=== PATIENT | female | born 1965 | race Caucasian/White ===

== ENCOUNTER → 2020-10-27 | Outpatient (CLI) | payer MEDICARE ==
[~2020-10-27] MED LIST: CATHETER FLUSH 10 ML SYR IV PRN; HOLD METFORMIN - RECEIVED CONTRAST 20 ML VIAL IV SCH; IOHEXOL 350 MG/ML 100 ML (OMNIPAQUE 350) VIAL IV ONE; NS 100 ML (IVPB) BAG IV ONE; RT-ALBUTEROL SULF 2.5 MG/3 ML PRE-MIX VIAL INH ONE
--- NOTE | 2020-10-27 16:12 | Diagnostic Imaging Report ---
EXAMINATION: CT chest with intravenous contrast. TECHNIQUE: Multiple contiguous axial images were obtained through the chest after the uneventful administration of intravenous contrast. All CT scans use one or more of the following dose optimizing techniques: automated exposure control, MA and/or KvP adjustment based on patient size and exam type or iterative reconstruction. HISTORY: COPD COMPARISON: None available. FINDINGS: There is no edema or pneumonia. No pleural effusion. No pneumothorax. No suspicious nodules. There is no axillary or supraclavicular lymphadenopathy. There is no mediastinal lymphadenopathy. There is severe stenosis of the left subclavian artery origin. Proximal left vertebral artery does not fill with contrast. Heart size is normal. There are mild coronary artery calcifications. No pericardial effusion. Aorta is normal in caliber. Limited views of the upper abdomen are unremarkable. There are no suspicious osseous lesions. IMPRESSION: 1. Clear lungs. 2. Severe narrowing of the left subclavian artery origin with no opacification of the proximal left vertebral artery. Correlate for any evidence of upper extremity ischemia or subclavian steal. Dictated by: Dictated on workstation # [id number]
== END ==
LOC: RT 13:00
PROVIDERS: ATTEND Nurse Practitioner Family
DX: J44.9 Chronic obstructive pulmonary disease, unspecified (principal)
CPT/HCPCS: 71260; 94060; 94726; 94729

== ENCOUNTER → 2020-12-01 | Outpatient (CLI) | payer MEDICARE | LOC: CARD 08:55 | PROVIDERS: ATTEND Internal Medicine Cardiovascular Disease | DX: I10 Essential (primary) hypertension (principal); I25.10 Atherosclerotic heart disease of native coronary artery without angina pectoris | CPT/HCPCS: 93306 ==

== ENCOUNTER → 2021-01-28 | Outpatient (CLI) | payer MEDICARE ==
[~2021-01-28] MED LIST changes: -HOLD METFORMIN - RECEIVED CONTRAST 20 ML VIAL IV SCH; -IOHEXOL 350 MG/ML 100 ML (OMNIPAQUE 350) VIAL IV ONE; -NS 100 ML (IVPB) BAG IV ONE; +REGADENOSON 0.4 MG/5 ML SYR (LEXISCAN) IV ONE; -RT-ALBUTEROL SULF 2.5 MG/3 ML PRE-MIX VIAL INH ONE
[2021-01-28 09:33] VITALS: BP 167/97
--- NOTE | 2021-01-28 12:31 | Cardiology Stress Test Report ---
Stress Test Report Date of Procedure/Referring: Date of Procedure: Jan 28, 2021 PCP Julian Cartwright MD Admitting Physician Center/[facility] Indications: HTN Baseline Heart Rate: 71 Baseline Blood Pressure: Blood Pressure Systolic: 167 Blood Pressure Diastolic: 97 Baseline Vitals Vital Signs Date Time Temp Pulse Resp B/P (MAP) Pulse Ox O2 Delivery O2 Flow Rate FiO2 01/28/21 09:33 69 167/97 (120) Baseline EKG: Baseline EKG: NSR Summary After explaining the procedure to the patient, she signed a consent and then brought to the stress nuclear laboratory. Patient received 0.4 mg Lexiscan for stress test, ECG, heart rate and blood pressure were monitored continuously. Resting and stress dose of radio tracer w ere injected, imaging was acquired and reviewed in short axis, horizontal long axis and vertical long axis views. TID: 1.1 SSS: 9 SDS: 2 EF: 54 1. Patient tolerated Lexiscan well 2. Breast attenuation with typical female pattern, mild decrease uptake at the base of the anterior wall and anterior septum which is fixed, no significant ischemia or infarction was noted 3. Normal left ventricular size, EF 54% JULIAN CARTWRIGHT MD Jan 28, 2021 12:31
== END ==
LOC: CARD 07:07
PROVIDERS: ATTEND Internal Medicine Cardiovascular Disease
DX: I25.10 Atherosclerotic heart disease of native coronary artery without angina pectoris (principal); I10 Essential (primary) hypertension
CPT/HCPCS: 78452; 93017; A9502

== ENCOUNTER 2021-03-11 07:58 | Day surgery (SDC) | payer MEDICARE ==
[~2021-03-11] VITALS: Ht 166 cm; Wt 88.0 kg
--- OUTSIDE RECORDS SUMMARY | 2021-03-11 08:02 | XMS REPORT | Clinical Summary ---
Author Author [facility] Organization [facility] Address Unknown Phone Unavailable Care Team Providers Care Amusement Or Recreation Card Checker Name Role Phone Radha Estes EMI PCP Manny Duenas MD Unavailable Chelsie Elmore EYEGLASS LENS GENERATOR Unavailable Kylee Green APRN-DELIMBER OPERATOR Unavailable Sharmin Campbell EYEGLASS LENS GENERATOR Unavailable Source Comments Some departments are not documenting in the electronic medical record. If you d o not see the information that you expected, contact Release of Information in [facility] Health Information Management department at [phone] for further assistan ce in locating additional records.[facility] Allergies No Known Active Allergies Medications End Date Status Medication Sig Dispensed Refills Start Date Active DOCOSAHEXANOIC ACID/EPA Take 1,000 mg 0 (FISH OIL PO) by mouth daily. Active VITS Take by 0 W-CA,FE,FA(<1MG) mouth daily. ( VITAMIN PO) Active meloxicam (MOBIC) 7.5 mg Take 7.5 mg 0 tablet by mouth daily. Active lisinopril (PRINIVIL, Take 40 mg by 0 ZESTRIL) 40 mg tablet mouth daily. Active ERGOCALCIFEROL (VITAMIN Take 1,000 mg 0 D2) (VITAMIN D PO) by mouth. Active RIBAVIRIN PO Take by 0 mouth. unknown dose takes three in AM two in HS Active SOFOSBUVIR (SOVALDI PO) Take 400 mg 0 by mouth. Active Problems Problem Noted Date Rash 01/06/2014 Vitamin D deficiency 11/05/2013 Hypertension 11/05/2013 Hepatitis C 09/11/2013 Hyperlipidemia 09/11/2013 Tobacco abuse disorder 09/11/2013 Arthritis 09/11/2013 Overview: Formatting of this note might be differ ent from the original. On Meloxicam by PCP Surgical History Surgery Date Site/Laterality Comments HYSTERECTOMY Medical History Medical History Date Comments Hepatitis Social History Date Tobacco Use Types Packs/Day Years Used Current Every Day Smoker 1 Tobacco Cessation: Ready to Quit: Yes; C ounseling Given: Yes Comments: states has tried quitting but isnt ready Comments Alcohol Use Standard Drinks/Week Not Asked 0 (1 standard drink = 0.6 o z pure alcohol) Sex Assigned at Date Recorded Not on file Last Filed Vital Signs Reading Time Taken Comments Vital Sign 158/80 01/30/2015 11:30 AM CDT Blood Pressure 81 01/30/2015 11:30 AM CDT Pulse 37.1 C (98.7 F) 01/30/2015 11:30 AM CDT Temperature 16 01/30/2015 11:30 AM CDT Respiratory Rate 100% 01/30/2015 11:30 AM CDT Oxygen Saturation - - Inhaled Oxygen Concentration 79.5 kg (175 lb 3.2 oz) 01/30/2015 11:30 AM CDT Weight 166.4 cm (5' 5.5") 01/30/2015 11:30 AM CDT Height 28.71 01/30/2015 11:30 AM CDT Body Mass Index Plan of Treatment Health Maintenance Due Date Last Done Comments HIV SCREENING 1978 DTAP/TDAP VACCINES (1 - 1981 Tdap) PHYSICAL (COMPREHENSIVE) 1981 EXAM CERVICAL CANCER SCREENING 1984 BREAST CANCER SCREENING 2003 COLORECTAL CANCER 2013 SCREENING SHINGLES RECOMBINANT 2013 VACCINE (1 of 2) INFLUENZA VACCINE 03/20/2021 HEPATITIS C SCREENING Completed 05/23/2014, 02/14/2014, 09/10/2013, Additional history exists Results Not on filefrom Last 3 Months Insurance Type Payer Benefit Subscriber ID Effective Phone Address Plan / Dates Group HMO [employer] [facility] [id number] 2014-P [place] [id number] Advance Directives 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
[2021-03-11] MEDS ORDERED: LIDOCAINE 1% INJ 20 ML 20 ML VIAL ONE (08:04)
[2021-03-11] MEDS ORDERED: HEParin (CATH LAB) 2,000 ML IV ONE (08:04)
[2021-03-11] MEDS ORDERED: NS IV 1000 ML 1,000 ML ONE (08:04)
[2021-03-11 08:15] VITALS: BP 129/92
[2021-03-11] MEDS ORDERED: NS IV 1000 ML 1,000 ML IV SCH (08:15)
[2021-03-11 08:24] LABS: HEMATOCRIT 42 % (35-52); HEMOGLOBIN 14.6 g/dL (11.5-16.0); MEAN CORPUSCULAR HEMOGLOBIN 33 pg (25-34); MEAN CORPUSCULAR HGB CONC 34 g/dL (32-36); MEAN CORPUSCULAR VOLUME 95 fL (80-99); MEAN PLATELET VOLUME 10.4 fL (9.0-12.2); PLATELET COUNT 192 10^3/uL (130-400); WHITE BLOOD COUNT 8.3 10^3/uL (4.3-11.0)
[2021-03-11 08:42] LABS: PROTHROMBIN TIME PATIENT 13.3 SEC (12.2-14.7)
[2021-03-11 08:52] LABS: BILIRUBIN,TOTAL 0.4 MG/DL (0.1-1.0); CALCIUM 9.3 MG/DL (8.5-10.1); CREATININE SERUM 0.69 MG/DL (0.60-1.30); POTASSIUM 4.2 MMOL/L (3.6-5.0); TOTAL PROTEIN 7.2 GM/DL (6.4-8.2)
[2021-03-11] MEDS ORDERED: TIOT18CA2 IH (08:56)
[2021-03-11] MEDS ORDERED: RT-ALBUINH IH (08:56)
[2021-03-11] MEDS ORDERED: FLUT1DIS26 IH (08:56)
[2021-03-11] MEDS ORDERED: MELO7.5T46 PO (08:56)
--- NOTE | 2021-03-11 09:09 | Diagnostic Imaging Report ---
Portable erect AP chest at 818h. INDICATION: Preop heart catheterization The heart size is within normal limits and stable when compared to the CT chest exam of 10/27/2020. The lungs are clear. There is no sign of failure, pneumonia or a pleural effusion. The mediastinum is not widened. The osseous structures are intact. IMPRESSION: There is no evidence for active disease. Dictated by: Dictated on workstation # [id number]
[2021-03-11] MEDS ORDERED: ASPI-1238 PO (09:17)
[2021-03-11] MEDS ORDERED: MULT-1136 PO (09:17)
[2021-03-11] MEDS ORDERED: fentaNYL INJ 100 MCG/2 ML AMP ONE ×2 (10:23→11:02)
[2021-03-11] MEDS ORDERED: MIDAZOLAM 5 MG/5 ML (VERSED) VIAL ONE ×2 (10:23→11:02)
[2021-03-11] MEDS ORDERED: HEParin 1000 UNIT/ML (10ML VIAL) FOR BOLUS ONE (10:56)
[2021-03-11] MEDS ORDERED: RT-ALBUTEROL SULF 2.5 MG/3 ML PRE-MIX VIAL IH PRN (11:30)
[2021-03-11] MEDS: NS IV 1000 ML 1,000 ML IV SCH ×2 (11:30→21:54)
[2021-03-11] MEDS ORDERED: PATIENT MAY USE OWN MEDS, ALL PO SCH (11:30)
[2021-03-11] MEDS ORDERED: ASPIRIN 325 MG (5 GR) TABLET ONE (11:32)
[2021-03-11] MEDS ORDERED: CLOPIDOGREL 300 MG (PLAVIX) TABLET PO ONE (11:32)
--- NOTE | 2021-03-11 11:33 | Cardiac Cath Report ---
Cardiac Cath Report Physician (s)/Aperture Mask Etcher (s) Physician JULIAN SANTOYO MD Pre-Procedure Diagnosis Pre-Procedure Diagnosis: Coronary artery disease, subclavian artery stenosis Post-Procedure Note Procedure Start Date: Mar 11, 2021 Name of Procedure: Left heart catheterization Aortic arch angiogram Selective left subclavian angiogram Stenting of the left subclavian artery Findings/Procedure Note PROCEDURE NOTE: 55-year-old lady with history of hypertension, hyperlipidemia, has been having left shoulder and arm pain left-sided chest pain, had an abnormal stress test, scheduled for cardiac catheterization, had subclavian steal noted during carotid ultrasound, I was planning to evaluate aortic arch angiogram and possible angioplasty to the subclavian artery if needed. After explaining the procedure to the patient, all pros and cons were explained, all questions were answered. The patient signed the consent and then she was placed on the cardiac catheterization laboratory. Groin was prepped SL fashion local anesthesia was used. Sheath placed in the right femoral artery. Leeann right and left catheter were used to access the coronary system. Pigtail was used to access the left ventricular cavity. Left ventriculogram was not done, pressure was measured Aortic arch angiogram was done. Patient was noted to have severe left subclavian artery stenosis, I advanced the Leeann right catheter in the left subclavian artery, it was dampening of the pressure, angiogram showed severe proximal stenosis. Catheter was left in place and I advanced a Storq wire to the distal subclavian artery, given 5000 units of heparin then the sheath was exchanged into a long 6 Maori sheath. Through the sheath I advanced [place] 35 6 x 20 x 80 balloon did one inflation then reevaluated repeated the inflation then I used Omnilink Elite 7 x 29 x 80 stent deployed under 12 andra to 7.1 cm, angiogram showed excellent results. The sheath was exchanged and used short 7 Maori sheath, ACT was done. At the end of the procedure the sheath was removed. Closure device was deployed FINDINGS: Hemodynamics LV 144/17, end-diastolic pressure of 17 Aorta 148/75 mean of 105 ANATOMY: Left Main is free of obstructive disease Left Anterior Descending has mild disease nonobstructive disease Left Circumflex has mild disease nonobstructive disease Right Coronary Artery has mild disease nonobstructive disease LV Gram was not done, pressure was measured Aorta evaluation done with aortic arch angiogram showing normal aortic arch, no dissection or aneurysm, normal brachiocephalic artery and left carotid artery, the left subclavian artery appeared to have severe stenosis Selective left subclavian angiogram done with the Leeann right diagnostic catheter after reshaping the catheter showing severe long segment stenosis, successful balloon angioplasty then stenting using Omnilink Elite 7 x 29 deployed with excellent results. CONCLUSION: 1. Mild coronary artery disease nonobstructive disease 2. Normal left ventricular end-diastolic pressure 3. Normal aortic arch and brachiocephalic and left carotid with severe stenosis at the left subclavian artery 4. Successful angioplasty and stenting of the left subclavian artery using Omnilink 7 x 29 deployed with excellent results DISCUSSION AND RECOMMENDATION: Patient was started on aspirin and Plavix in addition to Lipitor. Continue to maximize medical therapy Anesthesia Type: Conscious Sedation Estimated blood loss (mL): 30 ml Contrast Amount: 80 ml Total Radiation Dose: 367 mGy Post-Procedure Diagnosis Post-operative diagnosis: Chest pain Coronary artery disease Subclavian steal syndrome Hyperlipidemia JULIAN SANTOYO MD Mar 11, 2021 11:33
--- NOTE | 2021-03-11 11:34 | Conscious Sedation/ASA ---
Conscious Sedation Pre-Proced Time 10:00 ASA Score 3 For ASA 3 and 4: Consider anesthesia and medical clearance. Also, for patients with a history of failed moderate sedation consider anesthesia. Airway Lungs Heart ASA score ASA 1: a normal healthy patient ASA 2: a patient with a mild systemic disease (mid diabetes, controlled hypertension, obesity x ASA 3: a patient with a severe systemic disease that limits activity (angina, COPD, prior Myocardial infarction) ASA 4: a patient with an incapacitating disease that is a constant threat to life (CHF, renal failure) ASA 5: a moribund patient not expected to survive 24 hrs. (ruptured aneurysm) ASA 6: a declared brain- patient whose organs are being harvested. For emergent operations, add the letter E after the classification Mallampati Classification Grade 3 Sedation Plan Analgesia, Amnesia, Plan communicated to team members, Discussed options with patient/fam, Discussed risks with patient/fam The patient is an appropriate candidate to undergo the planned procedure, sedation, and anesthesia. The patient immediately re-assessed prior to indication. JULIAN SANTOYO MD Mar 11, 2021 11:34
[2021-03-11 16:06] VITALS: BP 168/109
[2021-03-11] MEDS: NICOTINE 21 MG (NICODERM) PATCH TD SCH (17:13)
[2021-03-11 20:00] VITALS: BP 160/88
[2021-03-11] MEDS: RT--FLUTICASONE/SALMETEROL 113-14 (AIRDUO RespiCLICK) IH SCH (22:45)
[2021-03-12] VITALS: BP 135/71
[2021-03-12 06:24] LABS: HEMATOCRIT 42 % (35-52); HEMOGLOBIN 14.1 g/dL (11.5-16.0); MEAN CORPUSCULAR HEMOGLOBIN 32 pg (25-34); MEAN CORPUSCULAR HGB CONC 34 g/dL (32-36); MEAN CORPUSCULAR VOLUME 95 fL (80-99); MEAN PLATELET VOLUME 10.7 fL (9.0-12.2); PLATELET COUNT 173 10^3/uL (130-400)
[2021-03-12] MEDS ORDERED: LOSA50TA63 PO (06:24)
[2021-03-12] MEDS ORDERED: PANT40SU PO (06:24)
[2021-03-12] MEDS ORDERED: CLOP75TA28 PO (06:24)
[2021-03-12] MEDS ORDERED: ATOR20TA66 PO (06:24)
--- NOTE | 2021-03-12 06:25 | Discharge Inst-Post CATH ---
Discharge Inst-CATH/EP Problems Reviewed?: Yes Post Cardiac Cath/EP D/C Inst Follow Up/Plan Appointment with Dr Cartwright in 2-4 weeks <b>CARDIAC CATH/EP PROCEDURE DISCHARGE INSTRUCTIONS</b> ACTIVITY * Go Home directly and rest. * Limit activity of the leg (or wrist if it was used) for 7 days including aerobics, swimming, jogging, bicycling, etc. * Restrict stair-climbing for 7 days if possible, if not, climb up with your non-cath leg, then bring together on the same step. * Avoid lifting, pushing, pulling or excessive movement of the affected extremity for 7 days. * Customary sexual activity may be resumed after 2 days-use caution not to use a position that strains or causes pain to the affected extremity. * No driving for 24 hours. * NO SMOKING. * Avoid straining for bowel movements for 7 days. * Gentle walking on level ground is allowed. * Returning to work will depend on the type of procedure and the results. Your doctor will discuss this with you. CALL YOUR DOCTOR FOR ANY OF THE FOLLOWING: *If bleeding from the puncture site occurs- Apply gentle pressure to site with clean cloth and call your doctor or EMS. * If a knot or lump forms under the skin, increases in size, or causes pain. * If bruising appears to be worsening or moving further down your leg instead of disappearing. * Temperature above 101 F. CARE OF YOUR GROIN INCISION; * Bruising or purple discoloration of the skin near the puncture site is common. * You may shower only, no bathtub bathing for 5 days. Be careful to avoid slipping as your leg may feel stiff. * If a closure device was used on your femoral artery, please see the attached guide regarding care of the device and your leg. * Leave dressing on FOR 24 hours. CARE OF YOUR WRIST INCISION; * Bruising or purple discoloration of the skin near the puncture site is common. * You may shower. * DO NOT submerge wrist. * Leave dressing on FOR 24 hours. JULIAN CARTWRIGHT MD Mar 12, 2021 06:25
[2021-03-12 06:38] LABS: POTASSIUM 4.3 MMOL/L (3.6-5.0)
[2021-03-12 06:39] LABS: CALCIUM 9.3 MG/DL (8.5-10.1)
[2021-03-12] MEDS: RT--FLUTICASONE/SALMETEROL 113-14 (AIRDUO RespiCLICK) IH SCH (06:43)
[2021-03-12 06:44] LABS: CREATININE SERUM 0.69 MG/DL (0.60-1.30)
[2021-03-12] MEDS ORDERED: LOSARTAN 50 MG (COZAAR) TAB PO ONE (06:45)
[2021-03-12] MEDS ORDERED: MULTIVIT W/MINERALS TAB (THERAGRAN M) PO SCH (07:00)
[2021-03-12] MEDS: NS IV 1000 ML 1,000 ML IV SCH (07:30)
[2021-03-12] MEDS: NICOTINE 21 MG (NICODERM) PATCH TD SCH (07:36)
[2021-03-12] MEDS ORDERED: UMECLIDINIUM BROMIDE (INCRUSE ELLIPTA) 7'S IH SCH (08:00)
--- NOTE | 2021-03-12 08:32 | Cardiology Progress Note ---
Subjective Date Seen by Provider: Mar 12, 2021 Time Seen by Provider: 08:22 Subjective/Events-last exam Patient was seen at bedside, feeling better. No new complaint. Groin is healing well. Review of Systems General: No Chills, No Night Sweats, No Fatigue, No Malaise, No Appetite, No Other HEENT: No Head Aches, No Visual Changes, No Eye Pain, No Ear Pain, No Dysph andreina, No Sinus Congestion, No Post Nasal Drip, No Sore Throat, No Other Pulmonary: No Dyspnea, No Cough, No Pleuritic Chest Pain, No Other Cardiovascular: No: Chest Pain, Palpitations, Orthopnea, Paroxysmal Noc. Dyspnea, Edema, Lt Headedness, Other Objective-Cardiology Exam Last Set of Vital Signs Vital Signs 03/11/21 03/12/21 03/12/21 16:06 00:00 04:00 Temp 36.0 Pulse 87 Resp 13 B/P (MAP) 135/71 (92) Pulse Ox 96 O2 Delivery Room Air I&O Intake and Output 03/12/21 00:00 Intake Total 800 ml Output Total 2 ml Balance 798 ml Intake Oral 800 ml Output Urine Total 2 ml General: Alert, Oriented X3, Cooperative HEENT: Atraumatic, PERRLA Neck: Supple, No JVD, No Thyromegaly Lungs: Clear to Auscultation, Normal Air Movement Heart: Regular Rate, Normal S1, Normal S2, No Murmurs Abdomen: Normal Bowel Sounds, Soft, No Tenderness, No Hepatosplenomegaly, No Masses Extremities: No Clubbing, No Cyanosis, No Edema, Normal Pulses, No Tendern ess/Swelling Skin: No Rashes, No Breakdown, No Significant Lesion Neuro: Normal Gait, Normal Speech, Strength at 5/5 X4 Ext, Normal Tone, Sensation Intact Psych/Mental Status: Mental Status NL, Mood NL Results Lab Laboratory Tests 03/12/21 05:40 A/P-Cardiology Admission Diagnosis Peripheral arterial disease Hypertension Hyperlipidemia Tobaccoism Assessment/Plan Peripheral arterial disease, severe subclavian stenosis, status post stenting to the left subclavian artery with excellent results 1. Mild coronary artery disease nonobstructive disease 2. Normal left ventricular end-diastolic pressure 3. Normal aortic arch and brachiocephalic and left carotid with severe stenosis at the left subclavian artery 4. Successful angioplasty and stenting of the left subclavian artery using Omnilink 7 x 29 deployed with excellent results Hypertension, starting losartan, monitor blood pressure as an outpatient Hyperlipidemia, started on Lipitor. Tobaccoism, educated on smoking cessation JULIAN SANTOYO MD Mar 12, 2021 08:32
[2021-03-12] MEDS ORDERED: CLOPIDOGREL 75 MG (PLAVIX) TABLET PO SCH (09:00)
[2021-03-12] MEDS ORDERED: ASPIRIN E.C. 81 MG (ECOTRIN) TAB PO SCH (09:00)
[2021-03-12] MEDS ORDERED: TIOTROPIUM BROMIDE (SPIRIVA) 5'S INHALER IH SCH (09:00)
[2021-03-12] MEDS ORDERED: MELOXICAM 7.5 MG (MOBIC) TABLET PO SCH (09:00)
[2021-03-13] MEDS ORDERED: PATCH REMOVAL TP SCH (09:00)
== END 2021-03-12 09:50 | disposition home or self-care (01) ==
LOC: CATH 07:58 → CSD 11:43 → CATH 03-12 09:50
PROVIDERS: ATTEND Internal Medicine Cardiovascular Disease
DX: I25.10 Atherosclerotic heart disease of native coronary artery without angina pectoris (principal); I70.8 Atherosclerosis of other arteries; E78.2 Mixed hyperlipidemia; G45.8 Other transient cerebral ischemic attacks and related syndromes; I25.2 Old myocardial infarction; I10 Essential (primary) hypertension; J44.9 Chronic obstructive pulmonary disease, unspecified; F41.9 Anxiety disorder, unspecified; F17.210 Nicotine dependence, cigarettes, uncomplicated; R09.89 Other specified symptoms and signs involving the circulatory and respiratory systems; Z79.82 Long term (current) use of aspirin; Z79.899 Other long term (current) drug therapy; Z79.02 Long term (current) use of antithrombotics/antiplatelets; Z83.3 Family history of diabetes mellitus; Z80.9 Family history of malignant neoplasm, unspecified
CPT/HCPCS: 36215; 36221; 37236; 71045; 75710; 80048; 80053; 80061; 85027 ×2; 85610; 85730; 87081; C1725; C1760; C1769; C1876; C1894 ×2; 36415; 93458